=== PATIENT | male | born 1960 | race African-American/Black ===

== ENCOUNTER 2016-11-22 12:35 | Inpatient (IN) | payer MEDICAID ==
[2016-11-22 14:00] LABS: Basophils % (Auto) 0.7 % (0.0-1.8); Eosinophils % (Auto) 2.8 % (0.0-4.3); Hematocrit 27.6 % (35.5-45.6); Hemoglobin 9.4 gm/dl (11.8-15.2); Mean Corpuscular HGB Conc 34 % (32-34); Mean Corpuscular Hemoglobin 30 pg (28-32); Mean Corpuscular Volume 89 fl (84-94); Platelet Count 261 K/mm3 (140-440); Red Blood Count 3.09 M/mm3 (3.65-5.03); Red Cell Distribution Width 13.9 % (13.2-15.2); White Blood Count 9.3 K/mm3 (4.5-11.0)
[2016-11-22] MEDS ORDERED: APRESOLINE IV ONE ×2 (14:05→19:00)
[2016-11-22 14:07] LABS: BUN/Creatinine Ratio 6.85; Calcium 8.5 mg/dL (8.4-10.2); Chloride 92.1 mmol/L (98-107); Potassium 3.9 mmol/L (3.6-5.0)
--- NOTE | 2016-11-22 14:07 | Emergency Department Report ---
HPI - General Chief Complaint: High BP Time Seen by Provider: 11/22/16 13:33 - HPI HPI: This is a 56-year-old [place] male who presents to the emergency department from dialysis with complaint of elevated blood pressure, headache and blurry vision. The patient's blood pressure was elevated prior to dialysis and remained elevated after he completed dialysis. He usually drives himself to and from dialysis but called his family because his vision was blurry. The headache is general but has improved since getting to the emergency department. He has a past medical history of abscesses be, diabetes, hypertension and end- stage renal disease on dialysis on Monday, and Monday. His skein straightener is Dr. Cruz in his primary care doctor is Dr. Aron Mckeon. He denies any fever, nausea, vomiting, chest pain, shortness of breath, slurred speech. ED Past Medical Hx - Past Medical History Previous Medical History?: Yes Hx Hypertension: Yes Hx Diabetes: Yes (NO MEDS AT PRESENT) Hx GERD: Yes Hx Liver Disease: (Hep B) Hx Renal Disease: Yes Hx Tuberculosis: No Hx HIV: No - Surgical History Additional Surgical History: dialysis vas-cath right chest - Social History Smoking Status: Never Smoker Substance Use Type: None - Medications Home Medications: Home Medications Medication Instructions Recorded Confirmed Last Taken Type AtorvaSTATin [Lipitor] 20 mg PO QDAY #30 tablet 01/21/16 07/15/16 07/14/16 Rx Lisinopril [Zestril TAB] 10 mg PO QDAY #30 tablet 01/21/16 07/15/16 07/14/16 Rx Metoprolol [Lopressor TAB] 25 mg PO BID #60 tablet 01/21/16 07/15/16 07/15/16 Rx Vit B Comp&C/Folic Acid/Vit D3 1 each PO DAILY 02/03/16 07/15/16 07/14/16 History [Dialyvite 800 Plus D Wafer] Calcium Acetate [Calcium Acetate] 2 tab PO QDAC 07/15/16 07/15/16 07/14/16 History HYDROcodone/APAP 10-325 [[place] 1 each PO Q6HR PRN #20 tablet 07/15/16 Unknown Rx 10/325] Tenofovir [Viread] 300 mg PO QWEEK 07/15/16 07/15/16 07/08/16 History traMADol [Ultram 50 MG tab] 50 mg PO BID PRN 07/15/16 07/15/16 07/14/16 History ED Review of Systems ROS: Stated complaint: HBP Other details as noted in HPI Comment: All other systems reviewed and negative Constitutional: denies: chills, fever Eyes: vision change. denies: eye pain ENT: denies: ear pain, throat pain Respiratory: denies: cough, shortness of breath, wheezing Cardiovascular: denies: chest pain, palpitations Gastrointestinal: denies: abdominal pain, nausea, diarrhea Genitourinary: denies: urgency, dysuria Musculoskeletal: denies: back pain, joint swelling, arthralgia Skin: denies: rash, lesions Neurological: headache. denies: weakness Physical Exam - Physical Exam Vital Signs: Vital Signs 11/22/16 11/22/16 11/22/16 12:50 12:52 12:54 Temperature Pulse Rate 65 65 Respiratory 13 12 Rate Blood Pressure 188/84 188/84 O2 Sat by Pulse 100 100 100 Oximetry 11/22/16 11/22/16 11/22/16 12:56 12:58 12:59 Temperature 98.4 F Pulse Rate 64 64 66 Respiratory 11 L 12 18 Rate Blood Pressure 188/84 188/84 188/86 O2 Sat by Pulse 100 100 100 Oximetry 11/22/16 11/22/16 11/22/16 13:00 13:02 13:04 Temperature Pulse Rate 62 68 67 Respiratory 12 14 12 Rate Blood Pressure 182/80 182/80 182/80 O2 Sat by Pulse 100 100 100 Oximetry 11/22/16 11/22/16 13:15 13:30 Temperature Pulse Rate 64 64 Respiratory 12 11 L Rate Blood Pressure 192/85 192/85 O2 Sat by Pulse 100 100 Oximetry Physical Exam: GENERAL: The patient is well-developed well-nourished. HEENT: Normocephalic. Atraumatic. Extraocular motions are intact. Patient has moist mucous membranes. Pupils equal reactive to light bilaterally. No facial asymmetry. NECK: Supple. Trachea is midline. CHEST/LUNGS: Clear to auscultation. There is no respiratory distress noted. HEART/CARDIOVASCULAR: Regular. There is no tachycardia. There is no gallop rub or murmur. ABDOMEN: Abdomen is soft, nontender. Patient has normal bowel sounds. There is no abdominal distention. SKIN: Skin is warm and dry. NEURO: The patient is awake, alert, and oriented. The patient is cooperative. Patient has subjective decreased sensation to the left arm appeared to the right. There is a very mild left upper extremity drift. The patient has normal speech. Cranial nerves II through XII grossly intact. MUSCULOSKELETAL: There is no tenderness or deformity. There is no limitation range of motion. There is no evidence of acute injury. Radial pulses +2 over 4 bilaterally. ED Course Vital Signs 11/22/16 11/22/16 11/22/16 12:50 12:52 12:54 Temperature Pulse Rate 65 65 Respiratory 13 12 Rate Blood Pressure 188/84 188/84 O2 Sat by Pulse 100 100 100 Oximetry 11/22/16 11/22/16 11/22/16 12:56 12:58 12:59 Temperature 98.4 F Pulse Rate 64 64 66 Respiratory 11 L 12 18 Rate Blood Pressure 188/84 188/84 188/86 O2 Sat by Pulse 100 100 100 Oximetry 11/22/16 11/22/16 11/22/16 13:00 13:02 13:04 Temperature Pulse Rate 62 68 67 Respiratory 12 14 12 Rate Blood Pressure 182/80 182/80 182/80 O2 Sat by Pulse 100 100 100 Oximetry 11/22/16 11/22/16 13:15 13:30 Temperature Pulse Rate 64 64 Respiratory 12 11 L Rate Blood Pressure 192/85 192/85 O2 Sat by Pulse 100 100 Oximetry ED Medical Decision Making - Lab Data Result diagrams: 11/22/16 13:35 11/22/16 13:35 - EKG Data -: EKG Interpreted by Co EKG shows normal: sinus rhythm, axis, intervals, QRS complexes (LVH), ST-T waves (Early repolarization) Rate: normal - EKG Data When compared to previous EKG there are: previous EKG unavailable Interpretation: LVH - Radiology Data Radiology results: report reviewed CT of the head without contrast shows no acute findings. Chronic lacunar infarct in the right thalamus. The ovoid shaped hypodensity inferior to the frontal horn of the right lateral ventricle is of uncertain etiology. This is a chronic process but correlation with MRI may be useful. - Medical Decision Making 36-year-old male presents the emergency department with complaint of uncontrolled blood pressure despite finishing dialysis today. He also began complaining of some blurry vision and some generalized fatigue and weakness. He later on says that he has been having some intermittent numbness in her paresthesias down the left arm. Patient had a CT of the head that did not show any bleed, shift, mass or any acute process. Patient's labs are mostly unremarkable. There is renal sufficiency but he is end-stage renal disease. However the patient's daughter says that he is usually a very stoic individual and does not complain about anything. Therefore, with the patient making multiple complaints concerning neurological symptoms, he will be admitted to hospital for further evaluation and possible MRI. He does have a very mild left upper extremity drift that is more like a tremor. He complains of a revision. There is no slurred speech, facial asymmetry or aphasia. He has been accepted for admission by the hospitalist, Dr. Stephens. - Differential Diagnosis CVA, TIA, malignancy, sepsis, OK Critical Care Time: No Critical care attestation.: If time is entered above; I have spent that time in minutes in the direct care of this critically ill patient, excluding procedure time. ED Disposition Clinical Impression: End stage renal disease, Weakness, Blurry vision, Hypertensive urgency Disposition: OP ADMITTED IP TO THIS HOSP Is pt being admited?: Yes Condition: Stable Time of Disposition: 19:31
[2016-11-22] MEDS ORDERED: NORMODYNE IV ONE (14:56)
--- NOTE | 2016-11-22 16:03 | Cat Scan Report ---
Cranial CT without contrast. History: Headache/blurred vision. Findings: There is no evidence of acute infarct or hemorrhage. The posterior fossa is normal. There is an ovoid shaped hypodensity just below the frontal horn of the right lateral ventricle measuring 0.8 x 2.0 cm. I cannot tell for certain if this communicates with the frontal horn. Otherwise the ventricles are normal. There is a round subcentimeter hypodensity in the right thalamus. There are no masses or extra-axial collections. The calvarium is intact. Impression: 1. No acute findings. 2. Chronic lacunar infarct in the right thalamus. 3. The ovoid shaped hypodensity inferior to the frontal horn right lateral ventricle is of uncertain etiology. This is a chronic process. Correlation with MRI of the brain may be useful when appropriate.
--- NOTE | 2016-11-22 16:38 | Admit Criteria Form ---
Admission Criteria Documentation: HYPERTENSION Clinical Indications for Admission to Inpatient Care ( Place "X" for any and all applicable criteria): Admission is indicated for ANY ONE of the following(1)(2)(3)(4): [ ]I. Hypertensive emergency, with evidence of acute and progressing target organ disease as indicated by ANY ONE of the following: [ ]a) Hypertensive encephalopathy (eg, confusion, altered mental status) [ ]b) Cerebral infarction [ ]c) Intracranial hemorrhage [ ]d) Myocardial ischemia or infarction [ ]e) Pulmonary edema [ ]f) Aortic dissection [ ]g) Seizure [ ]h) Acute renal insufficiency [ ]i) Papilledema [ ]j) Microangiopathic hemolytic anemia [ ]II. Adrenergic crisis (eg, severe hypertension due to pheochromocytoma crisis, cocaine or amphetamine intoxication, or clonidine withdrawal) [X ]III. Severe hypertension (SBP greater than 180 mmHg or DBP greater than 110 mmHg or greater than the 95th percentile for age, gender, and height in pediatric patients) that cannot be controlled (eg, to SBP less than 160 mmHg and DBP less than 100 mmHg in adults) by treatment with oral medication in emergency department or observation care Extended stay beyond goal length of stay may be needed for(11)(12)(13): [ ]a) Persistent hypertensive encephalopathy [ ]b) Continuation of pulmonary edema [ ]c) Recurring or persistent severe hypertension [ ]d) Target organ damage (eg, angina, stroke, aortic dissection) [ ]e) Associated renal insufficiency The original [employer] content created by [employer] has been revised. The portions of the content which have been revised are identified through the use of italic text or in bold, and [facility] has neither reviewed nor approved the modified material. All other unmodified content is copyright [facility] [facility] [employer]. Please see references footnoted in the original [employer] [facility] [employer] edition 2016 Admission Criteria Met: Yes
[2016-11-22] MEDS ORDERED: MORPHINE IV ONE (17:11)
--- NOTE | 2016-11-22 18:24 | History and Physical Report ---
History of Present Illness Chief complaint: My head hurts, and my vision is blurry, and my blood pressure is high History of present illness: 56 YO Male with ESRD(HD T,R,Sa), HBV, HTN, GERD, DM presents to ED for evaluation. PT states that he experienced high blood pressure both before and after dialysis today. PT also complains of NULL, and blurred vision. Pt denies fever, chills, CP, Palpitations, NVD, syncope, palpitations, medication noncompliance, weakness, or recent ill contacts. Past History Past Medical History: diabetes, ESRD, GERD, hepatitis, hypertension Past Surgical History: Other (VAs CAth) Social history: , lives with family. denies: smoking, alcohol abuse Family history: diabetes, hypertension Medications and Allergies Allergies Allergy/AdvReac Type Severity Reaction Status Date / Time No Known Allergies Allergy Verified 11/18/15 09:15 Home Medications Medication Instructions Recorded Confirmed Last Taken Type AtorvaSTATin [Lipitor] 20 mg PO QDAY #30 tablet 01/21/16 07/15/16 07/14/16 Rx Lisinopril [Zestril TAB] 10 mg PO QDAY #30 tablet 01/21/16 07/15/16 07/14/16 Rx Metoprolol [Lopressor TAB] 25 mg PO BID #60 tablet 01/21/16 07/15/16 07/15/16 Rx Vit B Comp&C/Folic Acid/Vit D3 1 each PO DAILY 02/03/16 07/15/16 07/14/16 History [Dialyvite 800 Plus D Wafer] Calcium Acetate [Calcium Acetate] 2 tab PO QDAC 07/15/16 07/15/16 07/14/16 History HYDROcodone/APAP 10-325 [[place] 1 each PO Q6HR PRN #20 tablet 07/15/16 Unknown Rx 10/325] Tenofovir [Viread] 300 mg PO QWEEK 07/15/16 07/15/16 07/08/16 History traMADol [Ultram 50 MG tab] 50 mg PO BID PRN 07/15/16 07/15/16 07/14/16 History Review of Systems All systems: negative Neurological: headaches Exam - Constitutional Vitals: Temp Pulse Resp BP Pulse Ox 98.4 F 69 11 L 153/73 99 11/22/16 12:59 11/22/16 16:30 11/22/16 17:15 11/22/16 16:30 11/22/16 16:30 General appearance: Present: no acute distress, well-nourished - EENT Eyes: Present: PERRL ENT: hearing intact, clear oral mucosa - Neck Neck: Present: supple, normal ROM - Respiratory Respiratory effort: normal Respiratory: bilateral: CTA - Cardiovascular Heart Sounds: Present: S1 & S2. Absent: rub, click - Extremities Extremities: pulses symmetrical, No edema Peripheral Pulses: within normal limits - Abdominal General gastrointestinal: Present: soft, non-tender, non-distended, normal bowel sounds Male genitourinary: Present: normal - Integumentary Integumentary: Present: clear, warm, dry - Musculoskeletal Musculoskeletal: gait normal, strength equal bilaterally - Psychiatric Psychiatric: appropriate mood/affect, intact judgment & insight - Neurologic Neurologic: CNII-XII intact, moves all extremities Results - Labs CBC & Chem 7: 11/22/16 13:35 11/22/16 13:35 Labs: Abnormal lab results 11/22/16 11/22/16 Range/Units 13:35 13:35 RBC 3.09 L (3.65-5.03) M/mm3 Hgb 9.4 L (11.8-15.2) gm/dl Hct 27.6 L (35.5-45.6) % Seg Neutrophils % 73.3 H (40.0-70.0) % Sodium 132 L (137-145) mmol/L Chloride 92.1 L (98-107) mmol/L BUN 37 H (9-20) mg/dL Creatinine 5.4 H (0.8-1.5) mg/dL Glucose 157 H (75-100) mg/dL Assessment and Plan - Patient Problems (1) Hypertensive urgency Current Visit: Yes Status: Acute Plan to address problem: Monitor BP q shift, hydralazine prn, supportive care, (2) Encephalopathy acute Current Visit: Yes Status: Acute Plan to address problem: Hypertensive encephalopathy: monitor bp q shift, continue current care, hydralazine prn. MRI brain (3) Diabetes Current Visit: Yes Status: Acute Qualifiers: Diabetes mellitus type: D Diabetes mellitus complication status: D Diabetes mellitus complication detail: D Diabetic retinopathy severity: D Proliferative retinopathy type: P Diabetes mellitus macular edema: D Diabetes mellitus intermodal customer service insulin use: D Laterality: L Chronic kidney disease stage: C Plan to address problem: ADA diet, insulin, accu check (4) GERD (gastroesophageal reflux disease) Current Visit: Yes Status: Acute Qualifiers: Esophagitis presence: E Plan to address problem: PPi therapy (5) End stage renal disease Current Visit: Yes Status: Chronic Plan to address problem: Nephrology consulted, dialysis as per nephrology service (6) DVT prophylaxis Current Visit: Yes Status: Acute
[2016-11-22] MEDS ORDERED: TYLENOL PO PRN (18:27)
[2016-11-22] MEDS ORDERED: DUONEB 0.5 MG-3 MG/3 ML SOLN IH PRN (18:27)
[2016-11-22] MEDS ORDERED: APRESOLINE IV PRN (18:30)
[2016-11-22] MEDS ORDERED: ULTRAM PO PRN (18:32)
[2016-11-22] MEDS ORDERED: PROVENTIL IH PRN (19:21)
[2016-11-22] MEDS ORDERED: VIREAD PO SCH (22:00)
[2016-11-22] MEDS: LOPRESSOR PO SCH (23:27)
[2016-11-23] MEDS: NORCO 10/325 PO PRN ×3 (00:54→16:06)
[2016-11-23] MEDS: ZOFRAN IV PRN ×3 (00:54→18:20)
[2016-11-23] MEDS: Renal Caps PO SCH (09:05)
[2016-11-23] MEDS: PHOSLO PO SCH (09:06)
[2016-11-23] MEDS ORDERED: NON-FORMULARY (Vit B Comp&C/Folic Acid/Vit D3 [Dialyvite 800 Plus D Wafer] 1 EACH) PO SCH (10:00)
[2016-11-23] MEDS ORDERED: ZESTRIL PO SCH (10:00)
--- NOTE | 2016-11-23 11:32 | Magnetic Resonance Report ---
MRI OF THE BRAIN WITHOUT CONTRAST: HISTORY: Headache, blurred vision PROCEDURE: Multiplanar, multisequence MR imaging of the brain without IV contrast was performed. FINDINGS: No evidence for acute ischemia, hemorrhage, mass or extra-axial fluid collection. Mild cortical volume loss and mild nonspecific chronic white matter changes are identified which appear appropriate for this persons age. Chronic lacunar infarcts are identified in the right caudate nucleus, right thalamus, bilateral ferrara radiata and left cerebellum. A small chronic cortical infarct is identified in the tip of the right occipital lobe measuring less than 1 cm. The midline structures are central. The basal cisterns are patent. Normal ventricular size. The orbital cavities and sella turcica demonstrate no abnormality. The visualized paranasal sinuses and mastoid air cells are well aerated. IMPRESSION: No acute intracranial process. Age appropriate volume loss and chronic white matter changes. Multiple small chronic infarcts as described.
[2016-11-23] MEDS: LOPRESSOR PO SCH ×2 (12:36→22:27)
--- NOTE | 2016-11-23 15:57 | Consultation ---
History of Present Illness - Reason for Consult Consult date: 11/23/16 end stage renal disease, accelerated hypertension Requesting physician: ALONZO ZAMBRANO - History of Present Illness 56 YO Male with ESRD(HD T,R,Sa), HBV, HTN, GERD, DM presents to ED for evaluation. PT states that he experienced high blood pressure both before and after dialysis today. PT also complains of NULL, and blurred vision. Pt denies fever, chills, CP, Palpitations, NVD, syncope, palpitations, medication noncompliance, weakness, or recent ill contacts. Past History Past Medical History: diabetes, ESRD, GERD, hepatitis, hypertension Past Surgical History: Other (VAs CAth) Social history: , lives with family. denies: smoking, alcohol abuse Family history: diabetes, hypertension Medications and Allergies Allergies Allergy/AdvReac Type Severity Reaction Status Date / Time No Known Allergies Allergy Verified 11/18/15 09:15 Home Medications Medication Instructions Recorded Confirmed Last Taken Type AtorvaSTATin [Lipitor] 20 mg PO QDAY #30 tablet 01/21/16 11/22/16 07/14/16 Rx Lisinopril [Zestril TAB] 10 mg PO QDAY #30 tablet 01/21/16 11/22/16 07/14/16 Rx Metoprolol [Lopressor TAB] 25 mg PO BID #60 tablet 01/21/16 11/22/16 07/15/16 Rx Vit B Comp&C/Folic Acid/Vit D3 1 each PO DAILY 02/03/16 11/22/16 07/14/16 History [Dialyvite 800 Plus D Wafer] Calcium Acetate [Calcium Acetate] 2 tab PO QDAC 07/15/16 11/22/16 07/14/16 History HYDROcodone/APAP 10-325 [[place] 1 each PO Q6HR PRN #20 tablet 07/15/16 11/22/16 Unknown Rx 10/325] Tenofovir [Viread] 300 mg PO QWEEK 07/15/16 11/22/16 07/08/16 History traMADol [Ultram 50 MG tab] 50 mg PO BID PRN 07/15/16 11/22/16 07/14/16 History Active Meds: Active Medications Acetaminophen (Tylenol) 650 mg PO Q4H PRN PRN Reason: Pain MILD(1-3)/Fever >100.5/NULL Acetaminophen/Hydrocodone Bitart ([place] 10/325) 1 each PO Q6HR PRN PRN Reason: Pain Last Admin: 11/23/16 07:58 Dose: 1 each Albuterol (Proventil) 2.5 mg IH Q6HRT PRN PRN Reason: Wheezing Atorvastatin Calcium (Lipitor) 20 mg PO QHS [facility] Last Admin: 11/22/16 23:26 Dose: 20 mg Calcium Acetate (Phoslo) 1,334 mg PO QDAC [facility] Last Admin: 11/23/16 09:06 Dose: 1,334 mg Hydralazine HCl (Apresoline) 20 mg IV Q6HR PRN PRN Reason: Hypertension Last Admin: 11/22/16 23:28 Dose: 20 mg Insulin Aspart (Novolog) 0 units SUB-Q ACHS [facility] PRN Reason: Protocol Lisinopril (Zestril) 10 mg PO QDAY [facility] Last Admin: 11/23/16 12:39 Dose: 10 mg Metoprolol Tartrate (Lopressor) 25 mg PO BID [facility] Last Admin: 11/23/16 12:36 Dose: 25 mg Multivit/Ca Carb/B Cmplx/FA/Prenat (Renal Caps) 1 cap PO QDAY [facility] Last Admin: 11/23/16 09:05 Dose: 1 cap Ondansetron HCl (Zofran) 4 mg IV Q6H PRN PRN Reason: nausea/vomiting Last Admin: 11/23/16 07:58 Dose: 4 mg Tenofovir Disoproxil Fumarate (Viread) 300 mg PO Tu [facility] Last Admin: 11/22/16 23:26 Dose: 300 mg Tramadol HCl (Ultram) 50 mg PO BID PRN PRN Reason: Pain Review of Systems Constitutional: fatigue, weakness, malaise Cardiovascular: high blood pressure Exam - Vital Signs Vital signs: Vital Signs Pulse Ox 100 11/22/16 12:50 - Physical Exam Narrative exam: General appearance: Present: no acute distress, well-nourished - EENT Eyes: Present: PERRL ENT: hearing intact, clear oral mucosa - Neck Neck: Present: supple, normal ROM - Respiratory Respiratory effort: normal Respiratory: bilateral: CTA - Cardiovascular Heart Sounds: Present: S1 & S2. Absent: rub, click - Extremities Extremities: pulses symmetrical, No edema Peripheral Pulses: within normal limits - Abdominal General gastrointestinal: Present: soft, non-tender, non-distended, normal bowel sounds Male genitourinary: Present: normal - Integumentary Integumentary: Present: clear, warm, dry - Musculoskeletal Musculoskeletal: gait normal, strength equal bilaterally - Psychiatric Psychiatric: appropriate mood/affect, intact judgment & insight - Neurologic Neurologic: CNII-XII intact, moves all extremities Results - Lab Results 11/22/16 13:35 11/22/16 13:35 Most recent lab results Calcium 8.5 mg/dL (8.4-10.2) 11/22/16 13:35 Assessment and Plan Impression: * esrd * accelerated htn * anemia in esrd * dm type 2 * encephalopathy Plan: * amend bp med to control bp * strict i/o s * HD q tthsat * uf as tolerated * daily lytes * renal diet
[2016-11-23] MEDS ORDERED: NACL 0.9% 100 ML IV PRN (16:01)
[2016-11-23] MEDS: NOVOLOG SUB-Q SCH ×2 (18:00→23:52)
[2016-11-23] MEDS: NORVASC PO SCH (18:23)
[2016-11-23] MEDS: ZESTRIL PO SCH (18:26)
--- NOTE | 2016-11-23 18:40 | Progress Note ---
Assessment and Plan - Patient Problems (1) Hypertensive urgency Current Visit: Yes Status: Acute Plan to address problem: Monitor BP q shift, hydralazine prn, supportive care, scheduled oral hydralazine , (2) Encephalopathy acute Current Visit: Yes Status: Acute Plan to address problem: Hypertensive encephalopathy: monitor bp q shift, continue current care, hydralazine prn. 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 Hospitalist Physical - Constitutional Vitals: Temp Pulse Resp BP Pulse Ox 97.7 F 65 18 184/81 92 11/23/16 09:43 11/23/16 18:26 11/23/16 09:43 11/23/16 18:26 11/23/16 09:43 General appearance: Present: no acute distress, well-nourished - EENT Eyes: Present: PERRL, EOM intact ENT: hearing intact - Neck Neck: Present: supple - Respiratory Respiratory: bilateral: CTA - Cardiovascular Rhythm: regular Heart Sounds: Present: S1 & S2 - Extremities Extremities: no ischemia Peripheral Pulses: within normal limits - Abdominal General gastrointestinal: soft, non-tender, non-distended, no hepatomegaly, no splenomegaly - Integumentary Integumentary: Present: clear, dry - Psychiatric Psychiatric: appropriate mood/affect, cooperative - Neurologic Neurologic: CNII-XII intact Results - Labs CBC & Chem 7: 11/22/16 13:35 11/22/16 13:35 Labs: Laboratory Last Values WBC 9.3 K/mm3 (4.5-11.0) 11/22/16 13:35 RBC 3.09 M/mm3 (3.65-5.03) L 11/22/16 13:35 Hgb 9.4 gm/dl (11.8-15.2) L 11/22/16 13:35 Hct 27.6 % (35.5-45.6) L 11/22/16 13:35 MCV 89 fl (84-94) 11/22/16 13:35 MCH 30 pg (28-32) 11/22/16 13:35 MCHC 34 % (32-34) 11/22/16 13:35 RDW 13.9 % (13.2-15.2) 11/22/16 13:35 Plt Count 261 K/mm3 (140-440) 11/22/16 13:35 Lymph % (Auto) 16.8 % (13.4-35.0) 11/22/16 13:35 [place] % (Auto) 6.4 % (0.0-7.3) 11/22/16 13:35 Eos % (Auto) 2.8 % (0.0-4.3) 11/22/16 13:35 Baso % (Auto) 0.7 % (0.0-1.8) 11/22/16 13:35 Lymph # 1.6 K/mm3 (1.2-5.4) 11/22/16 13:35 [place] # 0.6 K/mm3 (0.0-0.8) 11/22/16 13:35 Eos # 0.3 K/mm3 (0.0-0.4) 11/22/16 13:35 Baso # 0.1 K/mm3 (0.0-0.1) 11/22/16 13:35 Seg Neutrophils % 73.3 % (40.0-70.0) H 11/22/16 13:35 Seg Neutrophils # 6.8 K/mm3 (1.8-7.7) 11/22/16 13:35 Sodium 132 mmol/L (137-145) L 11/22/16 13:35 Potassium 3.9 mmol/L (3.6-5.0) 11/22/16 13:35 Chloride 92.1 mmol/L (98-107) L 11/22/16 13:35 Carbon Dioxide 27 mmol/L (22-30) 11/22/16 13:35 Anion Gap 17 mmol/L 11/22/16 13:35 BUN 37 mg/dL (9-20) H 11/22/16 13:35 Creatinine 5.4 mg/dL (0.8-1.5) H 11/22/16 13:35 Estimated GFR 11 ml/min 11/22/16 13:35 BUN/Creatinine Ratio 6.85 % 11/22/16 13:35 Glucose 157 mg/dL (75-100) H 11/22/16 13:35 POC Glucose 225 (70-105) H 11/23/16 12:33 Calcium 8.5 mg/dL (8.4-10.2) 11/22/16 13:35 Total Creatine Kinase 67 units/L (55-170) 11/22/16 17:28 TSH 0.458 mlU/mL (0.270-4.200) 11/22/16 17:28
[2016-11-23] MEDS: APRESOLINE PO SCH (22:27)
[2016-11-24] MEDS: NOVOLOG SUB-Q SCH ×4 (07:20→22:31)
[2016-11-24] MEDS: APRESOLINE PO SCH ×3 (08:00→20:00)
--- NOTE | 2016-11-24 08:55 | Consultation ---
History of Present Illness - Reason for Consult Consult date: 11/24/16 Past History Past Medical History: diabetes, ESRD, GERD, hepatitis, hypertension Past Surgical History: Other (VAs CAth) Social history: , lives with family. denies: smoking, alcohol abuse Family history: diabetes, hypertension Medications and Allergies Allergies Allergy/AdvReac Type Severity Reaction Status Date / Time No Known Allergies Allergy Verified 11/18/15 09:15 Home Medications Medication Instructions Recorded Confirmed Last Taken Type AtorvaSTATin [Lipitor] 20 mg PO QDAY #30 tablet 01/21/16 11/22/16 07/14/16 Rx Lisinopril [Zestril TAB] 10 mg PO QDAY #30 tablet 01/21/16 11/22/16 07/14/16 Rx Metoprolol [Lopressor TAB] 25 mg PO BID #60 tablet 01/21/16 11/22/16 07/15/16 Rx Vit B Comp&C/Folic Acid/Vit D3 1 each PO DAILY 02/03/16 11/22/16 07/14/16 History [Dialyvite 800 Plus D Wafer] Calcium Acetate [Calcium Acetate] 2 tab PO QDAC 07/15/16 11/22/16 07/14/16 History HYDROcodone/APAP 10-325 [[place] 1 each PO Q6HR PRN #20 tablet 07/15/16 11/22/16 Unknown Rx 10/325] Tenofovir [Viread] 300 mg PO QWEEK 07/15/16 11/22/16 07/08/16 History traMADol [Ultram 50 MG tab] 50 mg PO BID PRN 07/15/16 11/22/16 07/14/16 History Active Meds: Active Medications Acetaminophen (Tylenol) 650 mg PO Q4H PRN PRN Reason: Pain MILD(1-3)/Fever >100.5/NULL Acetaminophen/Hydrocodone Bitart ([place] 10/325) 1 each PO Q6HR PRN PRN Reason: Pain Last Admin: 11/23/16 16:06 Dose: 1 each Albuterol (Proventil) 2.5 mg IH Q6HRT PRN PRN Reason: Wheezing Amlodipine Besylate (Norvasc) 10 mg PO QDAY [facility] Last Admin: 11/23/16 18:23 Dose: 10 mg Atorvastatin Calcium (Lipitor) 20 mg PO QHS [facility] Last Admin: 11/23/16 22:27 Dose: 20 mg Calcium Acetate (Phoslo) 1,334 mg PO QDAC [facility] Last Admin: 11/23/16 09:06 Dose: 1,334 mg Hydralazine HCl (Apresoline) 20 mg IV Q6HR PRN PRN Reason: Hypertension Last Admin: 11/22/16 23:28 Dose: 20 mg Hydralazine HCl (Apresoline) 100 mg PO TID [facility] Last Admin: 11/23/16 22:27 Dose: 100 mg Sodium Chloride (Nacl 0.9%) 100 mls @ 999 mls/hr IV MARBELLA PRN PRN Reason: Hypotension Insulin Aspart (Novolog) 0 units SUB-Q ACHS [facility] PRN Reason: Protocol Last Admin: 11/23/16 23:52 Dose: Not Given Lisinopril (Zestril) 40 mg PO QDAY [facility] Last Admin: 11/23/16 18:26 Dose: 40 mg Metoprolol Tartrate (Lopressor) 25 mg PO BID [facility] Last Admin: 11/23/16 22:27 Dose: 25 mg Multivit/Ca Carb/B Cmplx/FA/Prenat (Renal Caps) 1 cap PO QDAY [facility] Last Admin: 11/23/16 09:05 Dose: 1 cap Ondansetron HCl (Zofran) 4 mg IV Q6H PRN PRN Reason: nausea/vomiting Last Admin: 11/23/16 18:20 Dose: 4 mg Tenofovir Disoproxil Fumarate (Viread) 300 mg PO Tu [facility] Last Admin: 11/22/16 23:26 Dose: 300 mg Tramadol HCl (Ultram) 50 mg PO BID PRN PRN Reason: Pain Exam - Vital Signs Vital signs: Vital Signs Pulse Ox 100 11/22/16 12:50 Results - Lab Results 11/22/16 13:35 11/22/16 13:35 Most recent lab results Calcium 8.5 mg/dL (8.4-10.2) 11/22/16 13:35 Assessment and Plan Impression: * ESRD * Accelerated hypertension * Anemia secondary to ESRD * Type II DM * Encephalopathy Plan: * Continue HD TTS - UF as tolerated * Continue antiHTN meds for BP control - note addition of Amlodipine, Hydralazine yesterday; Lisinopril increased from 10mg to 40mg daily yesterday * Renal diet * Epogen with HD
[2016-11-24] MEDS: PHOSLO PO SCH (14:14)
[2016-11-24] MEDS: NORVASC PO SCH (14:14)
[2016-11-24] MEDS: ZESTRIL PO SCH (14:15)
[2016-11-24] MEDS: Renal Caps PO SCH (14:15)
[2016-11-24] MEDS: CATAPRES PO SCH ×3 (14:18→21:52)
[2016-11-24] MEDS: LOPRESSOR PO SCH ×2 (14:18→21:52)
--- NOTE | 2016-11-24 17:09 | Progress Note ---
Assessment and Plan Impression: * ESRD * Accelerated hypertension * Anemia secondary to ESRD * Type II DM * Encephalopathy Plan: * Continue HD TTS - UF as tolerated * Continue antiHTN meds for BP control - note addition of Amlodipine, Hydralazine yesterday; Lisinopril increased from 10mg to 40mg daily yesterday * Renal diet * Epogen with HD * Check AM labs Subjective Date of service: 11/24/16 Interval history: Patient seen on dialysis without complaint. Objective - Vital Signs Vital signs: Vital Signs - 12hr 11/24/16 11/24/16 11/24/16 08:00 10:10 10:30 Temperature 97.9 F 97.9 F Pulse Rate 69 65 Pulse Rate [ 65 Right Radial] Respiratory 20 18 Rate Blood Pressure 147/73 139/68 Blood Pressure 114/58 [Right Arm] O2 Sat by Pulse 98 Oximetry 11/24/16 11/24/16 11/24/16 10:45 11:00 11:15 Temperature Pulse Rate 60 66 65 Pulse Rate [ Right Radial] Respiratory Rate Blood Pressure 137/64 119/59 117/58 Blood Pressure [Right Arm] O2 Sat by Pulse Oximetry 11/24/16 11/24/16 11/24/16 11:30 11:45 12:00 Temperature Pulse Rate 64 65 67 Pulse Rate [ Right Radial] Respiratory Rate Blood Pressure 103/55 99/50 110/51 Blood Pressure [Right Arm] O2 Sat by Pulse Oximetry 11/24/16 11/24/16 11/24/16 12:15 12:30 12:45 Temperature Pulse Rate 67 65 63 Pulse Rate [ Right Radial] Respiratory Rate Blood Pressure 112/56 108/56 119/57 Blood Pressure [Right Arm] O2 Sat by Pulse Oximetry 11/24/16 11/24/16 11/24/16 13:00 13:15 13:30 Temperature 98.0 F Pulse Rate 66 67 73 Pulse Rate [ Right Radial] Respiratory 18 Rate Blood Pressure 107/58 137/67 153/66 Blood Pressure [Right Arm] O2 Sat by Pulse Oximetry 11/24/16 11/24/16 14:00 16:00 Temperature 97.9 F 97.8 F Pulse Rate Pulse Rate [ 75 74 Right Radial] Respiratory 18 16 Rate Blood Pressure Blood Pressure 146/68 71/43 [Right Arm] O2 Sat by Pulse 99 98 Oximetry - General Appearance General appearance: well-developed, well-nourished EENT: ATNC Neck: no JVD Respiratory: Present: Clear to Ascultation Cardiology: regular, S1S2 Gastrointestinal: normal, no tenderness, no distended Integumentary: no rash, warm and dry Neurologic: no focal deficit Musculoskeletal: other (no edema) Psychiatric: mood/affect appropriate, cooperative - Lab 11/22/16 13:35 11/22/16 13:35 Most recent lab results Calcium 8.5 mg/dL (8.4-10.2) 11/22/16 13:35
--- NOTE | 2016-11-24 17:41 | Progress Note ---
Assessment and Plan - Patient Problems (1) Hypertensive urgency Current Visit: Yes Status: Acute Plan to address problem: Monitor BP q shift, hydralazine prn, supportive care, scheduled oral hydralazine , clonidine scheduled (2) Encephalopathy acute Current Visit: Yes Status: Acute Plan to address problem: Hypertensive encephalopathy: monitor bp q shift, continue current care, hydralazine prn. MRI brain (3) Diabetes Current Visit: Yes Status: Acute Qualifiers: Diabetes mellitus type: D Diabetes mellitus complication status: D Diabetes mellitus complication detail: D Diabetic retinopathy severity: D Proliferative retinopathy type: P Diabetes mellitus macular edema: D Diabetes mellitus alf insulin use: D Laterality: L Chronic kidney disease stage: C Plan to address problem: ADA diet, insulin, accu check (4) GERD (gastroesophageal reflux disease) Current Visit: Yes Status: Acute Qualifiers: Esophagitis presence: E Plan to address problem: PPi therapy (5) End stage renal disease Current Visit: Yes Status: Chronic Plan to address problem: Nephrology consulted, dialysis as per nephrology service (6) DVT prophylaxis Current Visit: Yes Status: Acute History Interval history: Pt resting in bed, Pt states that his headache has resolved, Pt denies pain, No reported nursing events. Hospitalist Physical - Constitutional Vitals: Temp Pulse Resp BP Pulse Ox 97.8 F 74 16 71/43 98 11/24/16 16:00 11/24/16 16:00 11/24/16 16:00 11/24/16 16:00 11/24/16 16:00 General appearance: Present: no acute distress, well-nourished - EENT Eyes: Present: PERRL, EOM intact ENT: hearing intact - Neck Neck: Present: supple - Respiratory Respiratory: bilateral: CTA - Cardiovascular Rhythm: regular Heart Sounds: Present: S1 & S2 - Extremities Extremities: no ischemia Peripheral Pulses: within normal limits - Abdominal General gastrointestinal: soft, non-tender, non-distended - Integumentary Integumentary: Present: clear, dry - Psychiatric Psychiatric: appropriate mood/affect, cooperative - Neurologic Neurologic: CNII-XII intact Results - Labs CBC & Chem 7: 11/22/16 13:35 11/22/16 13:35 Labs: Laboratory Last Values WBC 9.3 K/mm3 (4.5-11.0) 11/22/16 13:35 RBC 3.09 M/mm3 (3.65-5.03) L 11/22/16 13:35 Hgb 9.4 gm/dl (11.8-15.2) L 11/22/16 13:35 Hct 27.6 % (35.5-45.6) L 11/22/16 13:35 MCV 89 fl (84-94) 11/22/16 13:35 MCH 30 pg (28-32) 11/22/16 13:35 MCHC 34 % (32-34) 11/22/16 13:35 RDW 13.9 % (13.2-15.2) 11/22/16 13:35 Plt Count 261 K/mm3 (140-440) 11/22/16 13:35 Lymph % (Auto) 16.8 % (13.4-35.0) 11/22/16 13:35 [place] % (Auto) 6.4 % (0.0-7.3) 11/22/16 13:35 Eos % (Auto) 2.8 % (0.0-4.3) 11/22/16 13:35 Baso % (Auto) 0.7 % (0.0-1.8) 11/22/16 13:35 Lymph # 1.6 K/mm3 (1.2-5.4) 11/22/16 13:35 [place] # 0.6 K/mm3 (0.0-0.8) 11/22/16 13:35 Eos # 0.3 K/mm3 (0.0-0.4) 11/22/16 13:35 Baso # 0.1 K/mm3 (0.0-0.1) 11/22/16 13:35 Seg Neutrophils % 73.3 % (40.0-70.0) H 11/22/16 13:35 Seg Neutrophils # 6.8 K/mm3 (1.8-7.7) 11/22/16 13:35 Sodium 132 mmol/L (137-145) L 11/22/16 13:35 Potassium 3.9 mmol/L (3.6-5.0) 11/22/16 13:35 Chloride 92.1 mmol/L (98-107) L 11/22/16 13:35 Carbon Dioxide 27 mmol/L (22-30) 11/22/16 13:35 Anion Gap 17 mmol/L 11/22/16 13:35 BUN 37 mg/dL (9-20) H 11/22/16 13:35 Creatinine 5.4 mg/dL (0.8-1.5) H 11/22/16 13:35 Estimated GFR 11 ml/min 11/22/16 13:35 BUN/Creatinine Ratio 6.85 % 11/22/16 13:35 Glucose 157 mg/dL (75-100) H 11/22/16 13:35 POC Glucose 151 (70-105) H 11/23/16 22:42 Calcium 8.5 mg/dL (8.4-10.2) 11/22/16 13:35 Total Creatine Kinase 67 units/L (55-170) 11/22/16 17:28 TSH 0.458 mlU/mL (0.270-4.200) 11/22/16 17:28
[2016-11-25] MEDS: CATAPRES PO SCH (05:34)
--- NOTE | 2016-11-25 07:29 | Discharge Summary ---
Providers - Providers Date of Admission: 11/22/16 18:27 Attending physician: ALONZO ZAMBRANO 11/22/16 18:33 Consult to Physician [CONS] Routine Consulting Provider: DERRICK BAY Reason For Exam: ESRD Place consult to:: nephrology Notified:: office Phone number called:: [phone] Was contact made?: Yes If yes, spoke with:: jayshree Time called:: 10:21 Primary care physician: [employer] Hospitalization Condition: Stable Hospital course: 56 YO Male admitted for ESRD, Hypertensive Encephalopathy. Pt treated with supportive care and antihypertensive therapy. Nephrology team consulted for dialysis and patient was successfully dialyzed. Pt convalesced well during hospital course. Pt symptoms resolved with therapy. Pt blood pressure normalized. Pt medically optimized and back to usual state of health. Pt evaluated prior to discharge but no significant new physical exam findings since admission. Pt discharged home and instructed to f/u pcp 1wk for f/u care, and age/risk factory appropriate screening, and to resume dialysis as per nephrology instruction. Pt counseled regarding medication compliance, renal diet , and balanced diet, 36 minutes dedicated to patient discharge and education. Disposition: DISCHARGED TO HOME OR SELFCARE - Discharge Diagnoses (1) Hypertensive urgency Status: Acute (2) Encephalopathy acute Status: Acute (3) Diabetes Status: Acute Qualifiers: Diabetes mellitus type: D Diabetes mellitus complication status: D Diabetes mellitus complication detail: D Diabetic retinopathy severity: D Proliferative retinopathy type: P Diabetes mellitus macular edema: D Diabetes mellitus assisted insulin use: D Laterality: L Chronic kidney disease stage: C (4) GERD (gastroesophageal reflux disease) Status: Acute Qualifiers: Esophagitis presence: E (5) End stage renal disease Status: Chronic (6) DVT prophylaxis Status: Acute Core Measure Documentation - Palliative Care Palliative Care/ Comfort Measures: Not Applicable - Core Measures Any of the following diagnoses?: none Exam - Constitutional Vitals: Temp Pulse Resp BP Pulse Ox 98.1 F 65 16 95/52 99 11/25/16 00:00 11/25/16 05:34 11/25/16 00:00 11/25/16 05:34 11/25/16 00:00 General appearance: Present: no acute distress, well-nourished - EENT Eyes: Present: PERRL ENT: hearing intact, clear oral mucosa - Neck Neck: Present: supple, normal ROM - Respiratory Respiratory effort: normal Respiratory: bilateral: CTA - Cardiovascular Heart Sounds: Present: S1 & S2. Absent: rub, click - Extremities Extremities: pulses symmetrical, No edema Peripheral Pulses: within normal limits - Abdominal General gastrointestinal: Present: soft, non-tender, non-distended, normal bowel sounds Male genitourinary: Present: normal - Integumentary Integumentary: Present: clear, warm, dry - Musculoskeletal Musculoskeletal: gait normal, strength equal bilaterally - Psychiatric Psychiatric: appropriate mood/affect, intact judgment & insight - Neurologic Neurologic: CNII-XII intact, moves all extremities Plan Activity: advance as tolerated Diet: renal Special Instructions: record daily weights, record daily BP diary Follow up with: PRIMARY CARE, [Primary Care Provider] - 3-5 Days Prescriptions: amLODIPine [Norvasc] 10 mg PO QDAY #30 tablet cloNIDine [Catapres] 0.2 mg PO Q8HR #90 tablet hydrALAZINE [Apresoline TAB] 100 mg PO TID #90 tab Lisinopril [Zestril TAB] 40 mg PO QDAY #30 tablet
[2016-11-25] MEDS: PHOSLO PO SCH (08:45)
[2016-11-25] MEDS: NOVOLOG SUB-Q SCH ×2 (08:46→17:01)
[2016-11-25] MEDS: Renal Caps PO SCH (10:36)
[2016-11-25] MEDS ORDERED: NACL 0.9 (PRIMING MACHINE ONLY DIALYSIS) MC ONE (10:41)
[2016-11-25] MEDS: ZESTRIL PO SCH (16:04)
[2016-11-25] MEDS: APRESOLINE PO SCH (16:05)
[2016-11-25] MEDS: NORVASC PO SCH (16:05)
[2016-11-25 16:06] VITALS: BP 92/52
== END 2016-11-25 13:30 | disposition home or self-care (01) | DRG 682 ==
LOC: ED 12:35 → 3A 18:27
PROVIDERS: ADMIT Internal Medicine; ATTEND Internal Medicine
DX: I12.0 Hypertensive chronic kidney disease with stage 5 chronic kidney disease or end stage renal disease (principal); N18.6 End stage renal disease; I16.0 Hypertensive urgency; I67.4 Hypertensive encephalopathy; E11.22 Type 2 diabetes mellitus with diabetic chronic kidney disease; D63.8 Anemia in other chronic diseases classified elsewhere; K21.9 Gastro-esophageal reflux disease without esophagitis; Z99.2 Dependence on renal dialysis; Z86.19 Personal history of other infectious and parasitic diseases; Z83.3 Family history of diabetes mellitus; Z82.49 Family history of ischemic heart disease and other diseases of the circulatory system; Z71.51 Drug abuse counseling and surveillance of drug abuser
CPT/HCPCS: 36415; 70450; 70551; 80048; 82550; 82962; 84443; 85025; 93005; 93010; 96374; 96375; A9270-GY; J0360; J1815; J2270; J2405; J7030

== ENCOUNTER 2017-09-26 12:01 | Day surgery (SDC) | payer MEDICAID ==
[~2017-09-26 12:01] MED LIST: ANCEF/STERILE WATER 2 GM/20 ML 2 GM/20 ML SYRINGE IV NR
[2017-09-26] MEDS ORDERED: HEPARIN 10,000 UNITS/10 ML ONE (13:45)
[2017-09-26] MEDS ORDERED: VERSED ONE (13:45)
[2017-09-26] MEDS ORDERED: XYLOCAINE 2% INFILTRATI ONE (13:45)
[2017-09-26] MEDS ORDERED: HEPARIN/NS 5000 UNIT/500ML(CATH LAB) 1,000 ML IR ONE (13:45)
[2017-09-26] MEDS ORDERED: ANCEF/STERILE WATER 2 GM/20 ML 0 GM/0 ML SYRINGE IV ONE (13:46)
[2017-09-26] MEDS ORDERED: NACL 0.9% 500 ML 500 ML ONE (13:46)
[2017-09-26] MEDS: SUBLIMAZE ONE ×3 (13:57→14:25)
[2017-09-26 16:04] VITALS: BP 129/63
--- NOTE | 2017-09-26 17:05 | Short Stay Summary ---
Short Stay Documentation Date of service: 09/26/17 - History Principal diagnosis: Thrombosed jaime Past Medical History: dialysis, ESRD Past Surgical History: Other (LUE AVG) Social history: no significant social history - Allergies and Medications Current Medications: Allergies No Known Allergies Allergy (Verified 11/18/15 09:15) Home Medications Medication Instructions Recorded Confirmed Last Taken Type RX: AtorvaSTATin [Lipitor] 20 mg PO QDAY #30 tablet 01/21/16 09/26/17 07/14/16 Rx RX: Vit B Comp C/Folic Acid/Vit D3 1 each PO DAILY 02/03/16 09/26/17 09/25/17 History [Dialyvite 800 Plus D Wafer] RX: Calcium Acetate 2 tab PO QDAC 07/15/16 09/26/17 09/25/17 History RX: Tenofovir [Viread] 300 mg PO QWEEK 07/15/16 09/26/17 09/23/17 History RX: Lisinopril [Zestril TAB] 40 mg PO QDAY #30 tablet 11/25/16 09/26/17 Rx - Physical exam General appearance: no acute distress Integumentary: no rash HEENT: Atraumatic Lungs: Normal air movement Breasts: deferred Heart: Regular rate Gastrointestinal: normal Male Genitourinary: deferred Extremities: no ischemia, abnormal (thrombosed AVG) - Brief post op/procedure progress note Date of procedure: 09/26/17 Pre-op diagnosis: Thrombosed AVG Post-op diagnosis: same Procedure: AVG thrombectomy Anesthesia: local Surgeon: KELLY QUISPE Estimated blood loss: minimal Pathology: none Condition: stable - Disposition Condition at discharge: Good Disposition: DC-01 TO HOME OR SELFCARE Short Stay Discharge Plan Activity: advance as tolerated Weight Bearing Status: Weight Bear as Tolerated Diet: regular Wound: keep clean and dry, per your surgeon's advice Follow up with: FELIBERTO SHEA MD [Primary Care Provider] - 7 Days Forms: AVG Arteriogram D/CInstruction
--- NOTE | 2017-09-26 17:10 | Operative Report ---
Operative Report Operative Report: EXAM: LEFT UPPER EXTREMITY FISTULOGRAM, THROMBECTOMY, ANGIOPLASTY CLINICAL INDICATION: PATIENT WITH THROMBOSED LEFT UPPER EXTREMITY AV GRAFT DATE: 09/26/2017 PROCEDURE: Following an expiration of the risks, benefits and alternatives; written informed consent was obtained. Patient was brought to the injury graphic suite and placed in supine position on the examination table. Initial evaluation of the arm demonstrated a thrombosed left upper extremity AV graft. The patient's left arm was prepped and draped in the usual sterile fashion. 1% lidocaine was used for anesthesia. Accessed towards the venous outflow was obtained using a 7 cm 21-gauge needle. A 0.018 guidewire was advanced centrally. The needle was removed and a micro- sheath placed. A 0.018 guidewire was exchanged for a 0.035 guidewire and the micro-sheath exchanged for a 7 [place] vascular sheath. Accessed towards the arterial anastomosis was obtained in a similar fashion and a 6 [place] sheath placed towards the arterial anastomosis. A 4 [place] vertebral catheter was advanced over the 0.035 guidewire and imaging was obtained of the central veins. Central veins widely patent. There is thrombus extending from the venous anastomosis to the sheath insertion site. The 4 [place] vertebral catheter and guidewire were then advanced through the arterial anastomosis. There is thrombus extending from the arterial anastomosis to the sheath insertion site. Mechanical thrombectomy was performed using a [employer] mechanical thrombectomy device from the arterial anastomosis to the venous anastomosis. The arterial blood was then swept freed using a Taryn balloon. Flow was present throughout the graft at this point. This demonstrated stenosis just distal to the arterial anastomosis. An additional area stenosis is present within the venous outflow. Angioplasty of the juxta anastomotic stenosis was performed using a 6 mm balloon. Angioplasty of the venous outflow stenosis was performed using an 8 mm balloon. Post angioplasty imaging demonstrated reduction of the juxta anastomotic stenosis to less than 10% however there was persistent stenosis within the venous outflow. A decision was made therefore to place a drug- coated balloon across a stenosis. An 8 mm x 60 mm drug-coated balloon was deployed across the lesion and insufflated to 8 alea for 3 minutes. Postplacement imaging demonstrated brisk flow throughout the graft. The sheaths were removed and hemostasis achieved using 3-0 Vicryl suture. Sterile dressings were then applied. The patient tolerated the procedure well. There were no immediate post procedure complications. Conscious sedation was performed under the guidance of radiologic nursing. Continuous cardiac pulmonary monitoring was utilized. IMPRESSION: 1) Left upper extremity fistulogram demonstrating thrombus from the arterial anastomosis extending into the venous outflow. 2) Mechanical thrombectomy as described. 3) Angioplasty of the juxta anastomotic stenosis as well as the venous outflow stenosis
== END 2017-09-26 16:15 | disposition home or self-care (01) ==
LOC: CATHLABREC 12:01
PROVIDERS: ATTEND Radiology Diagnostic Radiology
DX: T82.868A Thrombosis due to vascular prosthetic devices, implants and grafts, initial encounter (principal); T82.858A Stenosis of other vascular prosthetic devices, implants and grafts, initial encounter; N18.6 End stage renal disease; Y83.2 Surgical operation with anastomosis, bypass or graft as the cause of abnormal reaction of the patient, or of later complication, without mention of misadventure at the time of the procedure
CPT/HCPCS: 36415; 36905; 84132; 99156; 99157; C1725; C1751; C1757; C1769; C1894; J1644; J2250; J3010; J7040; J0690; Q9967